=== PATIENT | female | born 1980 | race African-American/Black ===

== ENCOUNTER 2020-02-04 07:10 | Emergency (ER) | payer MEDICAID ==
[~2020-02-04] VITALS: Ht 172.7 cm; Wt 73.0 kg
[2020-02-04] MEDS ORDERED: SODIUM CHLORIDE 0.9% 1,000 ML IV ONE (07:49)
[2020-02-04] MEDS ORDERED: LORAZEPAM 2MG/ML CPJ IV ONE (08:00)
[2020-02-04] MEDS ORDERED: AMOXICILLIN/POTASSIUM CLAVULANATE 875/125MG TAB PO ONE (08:00)
[2020-02-04 08:11] LABS: MEAN CORPUSCULAR HEMOGLOBIN 27.4 pg (28.0-32.0); MEAN CORPUSCULAR VOLUME 84.1 fL (81.0-99.0); MEAN PLATELET VOLUME 9.7 fl (7.4-10.4); PLATELET 307 x1000/uL (130-400); RED BLOOD CELL COUNT 4.39 mill/uL (4.2-5.4); RED CELL DISTRIBUTION WIDTH 14.5 % (11.6-14.6)
[2020-02-04 08:18] LABS: CHLORIDE 102 mEq/L (98-107)
[2020-02-04 08:21] LABS: ETHANOL BLOOD < 10 mg/dL
[2020-02-04 08:28] VITALS: BP 115/74
[2020-02-04 08:32] LABS: PLATELET ESTIMATE NORMAL
[2020-02-04] MEDS ORDERED: POTASSIUM CHLORIDE 20MEQ TABLET SR PO ONE (10:15)
[2020-02-04 17:46] LABS: *BARBITURATES SCREEN URINE NEGATIVE (NEGATIVE); *BENZODIAZEPINES SCREEN URINE NEGATIVE (NEGATIVE)
[2020-02-04 17:47] LABS: *COCAINE SCREEN URINE NEGATIVE (NEGATIVE); CANNABINOID URINE SCREEN NEGATIVE (NEGATIVE); METHADONE URINE SCREEN NEGATIVE (NEGATIVE); OPIATES URINE SCREEN NEGATIVE (NEGATIVE); PHENCYCLIDINE URINE SCREEN NEGATIVE (NEGATIVE)
[2020-02-04 17:49] LABS: *AMPHETAMINES SCREEN URINE PRESUMTIVE POSITIVE (NEGATIVE)
== END 2020-02-04 11:04 | disposition home or self-care (01) ==
LOC: ER 07:40
DX: T43.621A Poisoning by amphetamines, accidental (unintentional), initial encounter (principal); L03.211 Cellulitis of face; K04.7 Periapical abscess without sinus; F17.290 Nicotine dependence, other tobacco product, uncomplicated; R00.0 Tachycardia, unspecified; Y92.9 Unspecified place or not applicable
CPT/HCPCS: 36415; 80053; 80305; 80320; 85025; 93005; 99284; 99406; J2060; J7030; G0480

== ENCOUNTER 2020-02-09 20:42 | Emergency (ER) | payer MEDICAID ==
[~2020-02-09] VITALS: Ht 170.2 cm; Wt 57.0 kg
[2020-02-09 20:44] VITALS: BP 127/98
[2020-02-09] MEDS ORDERED: IBUPROFEN 600MG TABLET PO ONE (21:15)
[2020-02-09] MEDS ORDERED: HYDROCODONE/ACETAMINOPHEN 5/325MG TABLET PO ONE (21:30)
[2020-02-09] MEDS ORDERED: TETANUS, DIPHTHERIA, PERTUSSIS VAC/PF 0.5ML (>7YR OLD) IM ONE (21:30)
[2020-02-09] MEDS ORDERED: BACITRACIN ZINC OINT UDPKT TOP ONE (21:30)
[2020-02-09] MEDS ORDERED: CEPHALEXIN 250MG CAPSULE PO ONE (21:45)
[2020-02-09] MEDS ORDERED: LIDOCAINE HCL/EPINEPHRINE 1%-EPI 1:100,000 20 ML VIAL INFIL ONE (22:15)
== END 2020-02-09 23:14 | disposition home or self-care (01) ==
LOC: ER 20:42
DX: S91.312A Laceration without foreign body, left foot, initial encounter (principal); S99.921A Unspecified injury of right foot, initial encounter; F15.10 Other stimulant abuse, uncomplicated; V09.9XXA Pedestrian injured in unspecified transport accident, initial encounter; Y93.89 Activity, other specified; Y92.89 Other specified places as the place of occurrence of the external cause; Y99.8 Other external cause status
CPT/HCPCS: 73630; 90471; 90715; 99284; J3490